=== PATIENT | male | born 1965 | race Caucasian/White ===

== ENCOUNTER 2018-07-20 07:02 | Emergency (ER) | payer BC ==
--- NOTE | 2018-07-20 07:08 | UC ---
Eye Complaint HPI - HPI Summary HPI Summary: Patient Chief Complaint: Five-day progressive localized skin infection of the left eyebrow. The patient points to a small less than 1 cm area and below it, a papule that was probably a folliculitis. The papule has grown over the last 2 days. There is mild discomfort. She has not been affected. Course (sudden, note is made of elevated blood pressure. MD note: vital signs stable. Vital signs beyond normal range reviewed. 146/103 Nurses Note Reviewed. "Redness above L eye, started with ingrown hair of eyebrow." Visit History Reviewed. Noncontributory to present complaint. Medications & Allergies Reviewed. - History of Current Complaint Stated Complaint: EYE ISSUE Time Seen by Provider: 07/20/18 07:06 - Allergies/Home Medications Allergies/Adverse Reactions: Allergies Allergy/AdvReac Type Severity Reaction Status Date / Time No Known Allergies Allergy Verified 07/20/18 07:14 PMH/Surg Hx/FS Hx/Imm Hx - Additional Past Medical History Additional PMH: PMH reviewed. No history of hypertension Family History: Positive history of: -CANCER -Denies hypertension, heart disease, stroke, diabetes. SOCIAL HISTORY: Employment: international logistics manager of facility. Family Environment: . Habits: non smoker. Previously Healthy: Yes - Surgical History Surgical History: Yes Surgery Procedure, Year, and Place: Appendectomy 30 yrs ago - Social History Alcohol Use: Occasionally Substance Use Type: None Smoking Status (MU): Never Smoked Tobacco Review of Systems All Other Systems Reviewed And Are Negative: Yes Skin: Positive: Other - redness in left eyebrow Eyes: Positive: Negative. Negative: Blurred Vision Respiratory: Positive: Negative Cardiovascular: Positive: Negative Gastrointestinal: Positive: Negative Genitourinary: Positive: Negative Is Patient Immunocompromised?: No - Comments Additional Review of Systems Comments: A 12 point review of systems was completed and was significantly positive for: skin discomfort over left eye . The remainder of the review was negative except as stated above in the ROS or HPI. Physical Exam - Summary Physical Exam Summary: Appearance: The patient is well-appearing, is in no pain or distress, and is well-nourished. Eyes: Conjunctiva are clear. Pupils are equal and reactive to light and accommodation. Extra ocular muscle movement is intact. The skin over the left eyebrow. It is not red. There is a 1 cm abraded area. And a 1 cm papule in the hair of the eyebrow. There is no extension suggesting a extending cellulitis or lymphangitis. This is only slightly uncomfortable to palpation. ENT: The hearing is grossly normal, the pharynx is normal, and the TMs are normal. There is no muffled or hoarse voice. No stridor. Neck: The neck is supple and there is no lymphadenopathy. Respiratory: The chest is nontender to palpation and without crepitus. The lungs are clear, there are normal breath sounds, and there is no respiratory distress. No wheezes, rales or rhonchi. Cardiovascular: Heart sounds reveal a regular rate and rhythm. There are no clicks, rubs or murmurs. There are no carotid bruits or thrills. Circulation is grossly intact. Abdomen: The abdomen is soft and nontender. There is no organomegaly. Bowel sounds are present and within normal limits. No point tenderness at McBurneys point. Musculoskeletal: Strength is intact. The patient moves all extremities. Neurological: The patient is alert. Motor and sensory are examination grossly intact. Speech is normal. Psychological: The patient displays age appropriate behavior Skin: Negative for rashes. Triage Information Reviewed: Yes Vital Signs Reviewed: Yes Eye Complaint Course/Dx - Course Course Of Treatment: Five-day progressive localized skin infection of the left eyebrow. The patient points to a small less than 1 cm area and below it, a papule that was probably a folliculitis. The papule has grown over the last 2 days. There is mild discomfort. She has not been affected. Course (sudden, note is made of elevated blood pressure. Note is made of elevated blood pressure. My diagnosis is folliculitis. I will prescribe Bactroban. The patient is requesting antibiotic because he lives [place] miles away. I will give him Keflex and told him not to take it for a day and see if he can get this better with warm hot soaks and the Bactroban. MEDICATIONS REVIEWED: Medications have been included in the original chart and reviewed. HYPERTENSION STATUS REVIEWED. Hypertensive BP reading of 146/103; told to follow up with PCP within 2 weeks to recheck blood pressure has been recommended to patient. Patient voices understanding. - Differential Dx/Diagnosis Differential Diagnosis/HQI/PQRI: Other - cellulitis, folliculitis Provider Diagnosis: Folliculitis Discharge - Sign-Out/Discharge Documenting (check all that apply): Patient Departure All imaging exams completed and their final reports reviewed: No Studies - Discharge Plan Condition: Stable Disposition: HOME Prescriptions: Cephalexin CAP* [Keflex 500 CAP*] 500 mg PO QID #28 cap MDD 4 Mupirocin 2% OINT* [Bactroban 2 % Oint*] 1 applic TOPICAL BID #1 tube MDD 8 Referrals: Emerson Mane MD [Primary Care Provider] - Additional Instructions: WE DISCUSSED: PLEASE SEEK CARE AT THE EMERGENCY DEPARTMENT IF SYMPTOMS WORSEN OR IF NEW SYMPTOMS DEVELOP. FOLLOW UP WITH YOUR PRIMARY CARE PHYSICIAN IF CONDITION CONTINUES BEYOND 3 DAYS WITHOUT IMPROVEMENT. We are open from 7 a.m. to 10 p.m. Call us with any questions or concerns. YOUR DIAGNOSIS IS: skin infection over your left eye YOUR PRESCRIPTION RECOMMENDATION IS: BACTROBAN and Keflex OTHER INSTRUCTIONS: warm hot soaks to the area as often as possible for 10 minutes each time; start antibiotic tomorrow if you are not getting better. Recheck with your doctor if not improving next week. Go to ED if it gets worse. Recheck your blood pressure. Hypertensive BP reading of 146/103; follow up with PCP within 2 weeks to recheck blood pressure. - Billing Disposition and Condition Condition: STABLE Disposition: Home
[2018-07-20 07:36] VITALS: BP 152/103
== END 2018-07-20 07:45 | disposition home or self-care (01) ==
LOC: UCEAST 07:02
DX: L73.9 Follicular disorder, unspecified (principal); R03.0 Elevated blood-pressure reading, without diagnosis of hypertension
CPT/HCPCS: 99212; G0463